=== PATIENT | female | born 2000 | race Caucasian/White ===

== ENCOUNTER 2020-03-26 02:08 | Emergency (ER) | payer BC ==
[~2020-03-26] VITALS: Ht 160 cm; Wt 59.0 kg
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
[2020-03-26] MEDS ORDERED: LACTATED RINGERS 1,000 ML IV ONE (02:20)
[2020-03-26] MEDS ORDERED: DOXYCYCLINE 100 MG (VIBRAMYCIN) TABLET PO STA (02:30)
[2020-03-26] MEDS ORDERED: KETOROLAC 30 MG/ML VIAL IVP ONE (02:30)
[2020-03-26] MEDS ORDERED: NS 100 ML (IVPB) BAG IV ONE (02:30)
[2020-03-26] MEDS ORDERED: ONDANSETRON 4 MG/2 ML (SDV) Z0FRAN IVP ONE (02:30)
[2020-03-26] MEDS ORDERED: cefTRIAXone FOR IV USE 1,000 MG in WATER (STERILE) FOR INJECTION 10 ML IV ONE (02:30)
[2020-03-26] MEDS ORDERED: HOLD METFORMIN - RECEIVED CONTRAST 20 ML VIAL IV SCH (02:30)
[2020-03-26] MEDS ORDERED: IOHEXOL 350 MG/ML 100 ML (OMNIPAQUE 350) VIAL IV ONE (02:30)
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
[2020-03-26] MEDS ORDERED: DOXY100C2 PO (03:23)
[2020-03-26 03:29] LABS: BACTERIA,URINE MODERATE /HPF; BILIRUBIN,URINE NEGATIVE (NEGATIVE); CLARITY,URINE SL CLOUDY; COLOR,URINE DARK YELLOW; GLUCOSE, URINE (UA) NEGATIVE (NEGATIVE); KETONES,URINE NEGATIVE (NEGATIVE); LEUKOCYTE ESTERASE ,URINE TRACE (NEGATIVE); NITRITE,URINE NEGATIVE (NEGATIVE); PH,URINE 5.5 (5-9); PROTEIN,URINE TRACE (NEGATIVE)
[2020-03-26 03:30] LABS: CALCIUM OXALATE CRYSTALS,UR MODERATE /LPF; SQUAMOUS EPITHELIAL CELL,UR >50 /HPF
[2020-03-26 03:31] LABS: BUN/CREATININE RATIO 17; CARBON DIOXIDE 23 MMOL/L (21-32); CHLORIDE 102 MMOL/L (98-107); CREATININE SERUM 0.84 MG/DL (0.60-1.30); GFR ESTIMATED > 60; GLUCOSE 109 MG/DL (70-105); POTASSIUM 3.7 MMOL/L (3.6-5.0); SODIUM 141 MMOL/L (135-145)
[2020-03-26 03:32] LABS: ALANINE AMINOTRANSFERASE 8 U/L (0-55); ALKALINE PHOSPHATASE 67 U/L (40-136); BILIRUBIN,TOTAL 0.5 MG/DL (0.1-1.0); CALCIUM 9.8 MG/DL (8.5-10.1); TOTAL PROTEIN 8.3 GM/DL (6.4-8.2)
[2020-03-26] MEDS ORDERED: ONDA4TAB11 PO (03:35)
[2020-03-26] MEDS ORDERED: L.AC1CAP6 PO (03:52)
[2020-03-26] MEDS ORDERED: METR500T PO (03:52)
[2020-03-26 03:58] LABS: HEMATOCRIT 34 % (35-52); HEMOGLOBIN 10.8 G/DL (11.5-16.0); MEAN CORPUSCULAR HEMOGLOBIN 25 PG (25-34); MEAN CORPUSCULAR VOLUME 79 FL (80-99)
[2020-03-26 03:59] LABS: BASOPHILS # (AUTO) 0.1 10^3/uL (0.0-0.1); BASOPHILS % (AUTO) 0 % (0-10); EOSINOPHILS % (AUTO) 0 % (0-10); LYMPHOCYTES # (AUTO) 1.5 X 10^3 (1.0-4.0); LYMPHOCYTES % (AUTO) 7 % (12-44); MEAN CORPUSCULAR HGB CONC 32 G/DL (32-36); MEAN PLATELET VOLUME 10.2 FL (7.4-10.4); MONOCYTES # (AUTO) 1.4 X 10^3 (0.0-1.0); MONOCYTES % (AUTO) 6 % (0-12); NEUTROPHILS % (AUTO) 87 % (42-75); PLATELET COUNT 398 10^3/uL (130-400); RED CELL DISTRIBUTION WIDTH 13.8 % (10.0-14.5)
[2020-03-26 04:05] VITALS: BP 104/74
[2020-03-26 04:06] LABS: BAND NEUTROPHILS 12 %; BASOPHILS % (MANUAL) 0 %; EOSINOPHILS % (MANUAL) 0 %; HYPOCHROMASIA 1+; LYMPHOCYTES % (MANUAL) 7 %; MONOCYTES % (MANUAL) 4 %; NEUTROPHILS % (MANUAL) 77 %
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
== END 2020-03-26 04:14 | disposition home or self-care (01) ==
LOC: EDUNIT# 02:08 → ER FS 02:10
DX: S06.0X0A Concussion without loss of consciousness, initial encounter (principal); S10.93XA Contusion of unspecified part of neck, initial encounter; S05.8X1A Other injuries of right eye and orbit, initial encounter; S00.83XA Contusion of other part of head, initial encounter; S20.211A Contusion of right front wall of thorax, initial encounter; S80.211A Abrasion, right knee, initial encounter; E04.1 Nontoxic single thyroid nodule; N76.0 Acute vaginitis; D72.828 Other elevated white blood cell count; R40.2142 Coma scale, eyes open, spontaneous, at arrival to emergency department; R40.2252 Coma scale, best verbal response, oriented, at arrival to emergency department; R40.2362 Coma scale, best motor response, obeys commands, at arrival to emergency department; Y04.8XXA Assault by other bodily force, initial encounter
CPT/HCPCS: 36415; 70450; 70486; 71046; 72125; 74177; 80053; 81000; 84703; 85007; 85027; 87088; 87210; 87491; 87591

== ENCOUNTER 2021-03-26 18:55 | Inpatient (IN) | payer BC, MEDICAID ==
[~2021-03-26] VITALS: Ht 157.5 cm; Wt 74.5 kg
[~2021-03-26 18:55] MED LIST: DOXY100C2 PO; L.AC1CAP6 PO; METR500T PO; ONDA4TAB11 PO
[2021-03-26 19:15] VITALS: BP 128/74
[2021-03-26] MEDS ORDERED: LACTATED RINGERS 1,000 ML IV SCH (19:45)
[2021-03-26 19:58] LABS: BASOPHILS % (AUTO) 0 % (0-10); EOSINOPHILS % (AUTO) 0 % (0-10); HEMATOCRIT 33 % (35-52); HEMOGLOBIN 9.9 g/dL (11.5-16.0); LYMPHOCYTES # (AUTO) 2.3 10^3/uL (1.0-4.0); LYMPHOCYTES % (AUTO) 17 % (12-44); MEAN CORPUSCULAR HEMOGLOBIN 23 pg (25-34); MEAN CORPUSCULAR HGB CONC 30 g/dL (32-36); MEAN CORPUSCULAR VOLUME 77 fL (80-99); MEAN PLATELET VOLUME 11.5 fL (9.0-12.2); MONOCYTES # (AUTO) 1.1 10^3/uL (0.0-1.0); MONOCYTES % (AUTO) 8 % (0-12); NEUTROPHILS # (AUTO) 9.5 10^3/uL (1.8-7.8); NEUTROPHILS % (AUTO) 72 % (42-75); PLATELET COUNT 302 10^3/uL (130-400); WHITE BLOOD COUNT 13.2 10^3/uL (4.3-11.0)
[2021-03-26 20:00] VITALS: BP 110/73
[2021-03-26] MEDS: D5 LR IV SOLUTION 1,000 ML IV SCH (20:38)
[2021-03-26 21:00] VITALS: BP 111/64
[2021-03-26] MEDS ORDERED: ZOLPIDEM 5 MG (AMBIEN) TAB PO SCH (21:00)
[2021-03-26] MEDS ORDERED: FERR-84 PO (21:45)
[2021-03-26] MEDS ORDERED: PREN-98 PO (21:45)
[2021-03-26 22:00] VITALS: BP 122/69
[2021-03-26] MEDS: CATHETER FLUSH 10 ML SYR IV SCH (22:00)
[2021-03-26 22:10] LABS: BILIRUBIN,URINE NEGATIVE (NEGATIVE); CLARITY,URINE CLEAR; COLOR,URINE YELLOW; GLUCOSE, URINE (UA) NEGATIVE (NEGATIVE); KETONES,URINE NEGATIVE (NEGATIVE); LEUKOCYTE ESTERASE ,URINE NEGATIVE (NEGATIVE); NITRITE,URINE NEGATIVE (NEGATIVE); PROTEIN,URINE NEGATIVE (NEGATIVE)
[2021-03-27] VITALS (35 sets, daily range): BP systolic 106–149; BP diastolic 55–95
[2021-03-27] MEDS ORDERED: fentaNYL 2 mcg/ml BUPIVA 0.125 100 ML ONE (02:29)
[2021-03-27] MEDS ORDERED: MINERAL OIL CONCENTRATE 99.9% 15 ML UDC ONE (03:01)
[2021-03-27] MEDS ORDERED: OXYTOCIN PRE-MIX DRIP 500 ML IV ONE (03:01)
[2021-03-27] MEDS ORDERED: LIDOCAINE/EPI 2% 1:200,00 (XYLOCAINE) 20 ML VIAL ONE (03:01)
[2021-03-27] MEDS ORDERED: BUPIVACAINE 0.25% 30 ML (SENSORCAINE) VIAL ONE (03:03)
[2021-03-27] MEDS ORDERED: fentaNYL INJ 100 MCG/2 ML AMP ONE (03:03)
[2021-03-27] MEDS: D5 LR IV SOLUTION 1,000 ML IV SCH ×3 (03:13→23:27)
[2021-03-27] MEDS ORDERED: OXYTOCIN PRE-MIX DRIP 500 ML IV SCH ×2 (05:30→08:15)
[2021-03-27] MEDS: CATHETER FLUSH 10 ML SYR IV SCH ×2 (06:00→14:02)
[2021-03-27] MEDS ORDERED: METOCLOPRAMIDE INJ 10 MG/2 ML (REGLAN) ONE (06:33)
[2021-03-27] MEDS ORDERED: FAMOTIDINE 20MG/2ML IV (PEPCID) ONE (06:33)
[2021-03-27] MEDS ORDERED: CITRIC ACID/SOB CIT (BICITRA) 30 ML UDC ONE (06:33)
[2021-03-27] MEDS ORDERED: ceFAZolin 2 GM IV Premixed 50 ML ONE (06:33)
[2021-03-27] MEDS ORDERED: TERBUTALINE INJ 1 MG/ML (BRETHINE) AMP ONE (06:34)
[2021-03-27] MEDS ORDERED: METHYLERGONOVINE 0.2 MG/ML (METHERGINE) AMP ONE (06:56)
--- NOTE | 2021-03-27 07:34 | History & Physical-OB ---
OB - Chief Complaint & HPI Date/Time Date of Admission: Date of Admission: Mar 26, 2021 at 18:55 Chief Complaint/History Expected Date of Delivery: March 22, 2021 Gestational Age in Weeks: 40 Gestational Age in Days: 4 Allergies and Home Medications Allergies Coded Allergies: No Known Drug Allergies (Unverified , 03/26/21) Home Medications Ferrous Sulfate 325 Mg Tablet, 325 MG PO BID, (Reported) Last Action: New Order Vit37/Iron/Folic Acid 1 Each Tab.chew, 1 EACH PO DAILY, (Reported) Last Action: New Order OB - Admission Exam Physical Exam Vitals: Vital Signs 03/27/21 03/27/21 03/27/21 03:33 03:45 04:31 Temp 36.5 Pulse 81 Resp 18 B/P (MAP) 111/61 (78) Pulse Ox 100 O2 Delivery Room Air Labs Laboratory Tests Test 03/26/21 19:10 03/26/21 19:35 Range/Units Urine Color YELLOW Urine Clarity CLEAR Urine pH 6.0 5-9 Urine Specific [place] >=1.030 1.016-1.022 Urine Protein NEGATIVE NEGATIVE Urine Glucose (UA) NEGATIVE NEGATIVE Urine Ketones NEGATIVE NEGATIVE Urine Nitrite NEGATIVE NEGATIVE Urine Bilirubin NEGATIVE NEGATIVE Urine Urobilinogen 0.2 < = 1.0 MG/DL Urine Leukocyte Esterase NEGATIVE NEGATIVE Urine RBC (Auto) NEGATIVE NEGATIVE Urine RBC /HPF Urine WBC /HPF Urine Crystals /LPF Urine Bacteria /HPF Urine Casts /LPF Urine Mucus /LPF Urine Culture Indicated NO White Blood Count 13.2 H 4.3-11.0 10^3/uL Red Blood Count 4.32 3.80-5.11 10^6/uL Hemoglobin 9.9 L 11.5-16.0 g/dL Hematocrit 33 L 35-52 % Mean Corpuscular Volume 77 L 80-99 fL Mean Corpuscular Hemoglobin 23 L 25-34 pg Mean Corpuscular Hemoglobin Concent 30 L 32-36 g/dL Red Cell Distribution Width 23.2 H 10.0-14.5 % Platelet Count 302 130-400 10^3/uL Mean Platelet Volume 11.5 9.0-12.2 fL Immature Granulocyte % (Auto) 2 % Neutrophils (%) (Auto) 72 42-75 % Lymphocytes (%) (Auto) 17 12-44 % Monocytes (%) (Auto) 8 0-12 % Eosinophils (%) (Auto) 0 0-10 % Basophils (%) (Auto) 0 0-10 % Neutrophils # (Auto) 9.5 H 1.8-7.8 10^3/uL Lymphocytes # (Auto) 2.3 1.0-4.0 10^3/uL Monocytes # (Auto) 1.1 H 0.0-1.0 10^3/uL Eosinophils # (Auto) 0.0 0.0-0.3 10^3/uL Basophils # (Auto) 0.0 0.0-0.1 10^3/uL Immature Granulocyte # (Auto) 0.2 H 0.0-0.1 10^3/uL INGE PARKER MD Mar 27, 2021 07:34
--- NOTE | 2021-03-27 07:34 | Labor Progress Note ---
Labor Progress Note Labor Progress Note Date Seen by Provider: Mar 27, 2021 Time Seen by Provider: 06:45 20 yo G1 @ 40.5 wga Vitals - Labs Vital Signs - I&O Vital Signs Date Time Temp Pulse Resp B/P (MAP) Pulse Ox O2 Delivery O2 Flow Rate FiO2 03/27/21 04:31 81 18 111/61 (78) Room Air 03/27/21 04:16 75 18 131/68 (89) Room Air 03/27/21 04:05 102 18 139/95 (110) Room Air 03/27/21 03:45 81 18 123/75 (91) 100 Room Air 03/27/21 03:40 66 18 125/83 (97) 100 Room Air 03/27/21 03:33 36.5 68 18 135/93 (107) 100 Room Air 03/27/21 03:31 67 18 130/83 (99) 100 Room Air 03/27/21 03:28 86 18 149/83 (105) 100 Room Air 03/27/21 03:00 71 18 139/89 (106) Room Air 03/27/21 02:00 75 18 112/74 (87) Room Air 03/27/21 01:00 74 18 130/78 (95) Room Air 03/27/21 00:00 75 18 108/65 (79) Room Air 03/26/21 23:00 36.3 18 Room Air 03/26/21 22:00 67 18 122/69 (86) Room Air 03/26/21 21:00 76 18 111/64 (80) Room Air 03/26/21 20:00 82 18 110/73 (85) Room Air 03/26/21 19:15 36.7 87 18 98 Room Air I & O 03/27/21 07:00 Intake Total 1000 ml Balance 1000 ml Labs Laboratory Tests 03/26/21 19:10: Urine Color YELLOW, Urine Clarity CLEAR, Urine pH 6.0, Urine Specific [place] >=1.030, Urine Protein NEGATIVE, Urine Glucose (UA) NEGATIVE, Urine Ketones NEGATIVE, Urine Nitrite NEGATIVE, Urine Bilirubin NEGATIVE, Urine Urobilinogen 0.2, Urine Leukocyte Esterase NEGATIVE, Urine RBC (Auto) NEGATIVE, Urine RBC , U rine WBC , Urine Crystals , Urine Bacteria , Urine Casts , Urine Mucus , Urine Culture Indicated NO 03/26/21 19:35: White Blood Count 13.2H, Red Blood Count 4.32, Hemoglobin 9.9L, Hematocrit 33L, Mean Corpuscular Volume 77L, Mean Corpuscular Hemoglobin 23L, Mean Corpuscular Hemoglobin Concent 30L, Red Cell Distribution Width 23.2H, Platelet Count 302, Mean Platelet Volume 11.5, Immature Granulocyte % (Auto) 2, Neutrophils (%) (Auto) 72, Lymphocytes (%) (Auto) 17, Monocytes (%) (Auto) 8, Eosinophils (%) (Auto) 0, Basophils (%) (Auto) 0, Neutrophils # (Auto) 9.5H, Lymphocytes # (Auto) 2.3, Monocytes # (Auto) 1.1H, Eosinophils # (Auto) 0.0, Basophils # (Auto) 0.0, Immature Granulocyte # (Auto) 0.2H INGE PARKER MD Mar 27, 2021 07:34
[2021-03-27] MEDS: KETOROLAC 30 MG/ML VIAL IV SCH ×3 (07:45→20:25)
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
--- NOTE | 2021-03-27 07:46 | Progress Note-Post Operative ---
Post-Operative Progess Note Surgeon (s)/Corrugated Fastener Driver (s) Surgeon ALIYAH YUAN DO Corrugated Fastener Driver: NA Pre-Operative Diagnosis failure to pro, non reassuring heart tones/bradycardia, failed opera Post-Operative Diagnosis Macrosomia, persistent malpresentation cephalopelvic Procedure & Operative Findings Date of Procedure 03/27/21 Procedure Performed/Findings emergent section Anesthesia Type general Estimated Blood Loss Estimated blood loss (mL): 750 ml Specimens/Packing Specimens Removed placenta ALIYAH YUAN DO Mar 27, 2021 07:46
[2021-03-27] MEDS ORDERED: TERBUTALINE INJ 1 MG/ML (BRETHINE) AMP SC ONE (08:00)
[2021-03-27] MEDS ORDERED: METOCLOPRAMIDE INJ 10 MG/2 ML (REGLAN) IVP ONE (08:00)
[2021-03-27] MEDS ORDERED: FAMOTIDINE 20MG/2ML IV (PEPCID) IVP ONE (08:00)
--- NOTE | 2021-03-27 08:05 | Cesarean Section Operative ---
Procedure Procedure Note Pre-operative Diagnosis: Mackenzie rios (20 /Para / ,Gestational Age (wks)40 with [] Post-operative Diagnosis: same [] Procedure: [] low transverse section Physician: ALIYAH YUAN Provider Engagement Executive: [] Estimated blood loss: [] mL Disposition: [] Findings: Viable [] , Apgars [], weight [], intact placenta, 3vc, normal appearing uterus, tubes, and ovaries. Indications:Mackenzie rios (20 /Para / ,Gestational Age (wks)40 presenting for []. Procedure Details: The patient was seen in pre-op and the procedure was discussed with the patient in full, including the risks, benefits, and alternatives. All questions were answered. The patient was taken to the operating room and a time out was performed, verifying patient and procedure. After spinal anesthesia was placed by our anesthesia colleagues, the patient was placed in the dorsal supine with leftward tilt for uterine displacement.~ Her abdomen was then prepped and draped in the typical sterile fashion. A Pfannenstiel skin incision was made using a scalpel and carried down through the underlying fascia. The fascia was incised in the midline and tented up using Harpreet clamps. On both the inferior and superior fascia side the rectus muscle was dissected off bluntly and sharply using Melgoza scissors. The peritoneum was identified and entered bluntly in the midline. This was then stretched laterally using manual strength. After entering the abdominal cavity and confirming lack of intraperitoneal adhesions, a large Delon retractor was placed and the lower uterine segment was visualized. A bladder flap was created with the use of Metzenbaum scissors.~ A scalpel was utilized to make a low transverse uterine incision. Amniotomy was performed with an Allis clamp with return of clear fluid. The infant's head was grasped and brought to the level of the incision. Fundal pressure was applied and was delivered without difficulty. Mouth and nares were suctioned with bulb suction. After the umbilical cord was clamped and cut, the was handed off to the pediatric staff. A sample of cord blood was then obtained. The placenta was delivered intact via uterine massage. The uterus was exte riorized and cleared of all clots and debris. The uterine incision was closed using 0 Vicryl in a running locked fashion. A second imbricated layer was placed using 0 Vicryl in a running fashion as well. The uterus was flexed forward and the posterior rectouterine space was inspected and cleared of all clots and debris. Again the hysterotomy site was examined and hemostasis was observed. The bilateral tubes and ovaries appeared normal. The uterus was placed back into the abdominal cavity and abdominal gutters were cleared of all clots and debris. A final check of the uterine incision showed it to be hemostatic. The peritoneum was closed using 3-0 Vicryl in a running fashion. The fascia was closed with 0 Vicryl in a running fashion. The subcutaneous space was hemostatic, and irrigated. The subcutaneous space was closed with 3-0 Vicryl in several single interrupted stitches. The skin was then closed using 4-0 Monocryl in a running subcuticular fashion. The skin edges were reapproximated together and were hemostatic. A pressure dressing was applied. All sponge, lap and needle counts were correct at the end of the procedure per nursing. Vitals - Labs Vital Signs - I&O Vital Signs Date Time Temp Pulse Resp B/P (MAP) Pulse Ox O2 Delivery O2 Flow Rate FiO2 03/27/21 04:31 81 18 111/61 (78) Room Air 03/27/21 04:16 75 18 131/68 (89) Room Air 03/27/21 04:05 102 18 139/95 (110) Room Air 03/27/21 03:45 81 18 123/75 (91) 100 Room Air 03/27/21 03:40 66 18 125/83 (97) 100 Room Air 03/27/21 03:33 36.5 68 18 135/93 (107) 100 Room Air 03/27/21 03:31 67 18 130/83 (99) 100 Room Air 03/27/21 03:28 86 18 149/83 (105) 100 Room Air 03/27/21 03:00 71 18 139/89 (106) Room Air 03/27/21 02:00 75 18 112/74 (87) Room Air 03/27/21 01:00 74 18 130/78 (95) Room Air 03/27/21 00:00 75 18 108/65 (79) Room Air 03/26/21 23:00 36.3 18 Room Air 03/26/21 22:00 67 18 122/69 (86) Room Air 03/26/21 21:00 76 18 111/64 (80) Room Air 03/26/21 20:00 82 18 110/73 (85) Room Air 03/26/21 19:15 36.7 87 18 98 Room Air I & O 03/27/21 07:00 Intake Total 1000 ml Balance 1000 ml Labs Laboratory Tests 03/26/21 19:10: Urine Color YELLOW, Urine Clarity CLEAR, Urine pH 6.0, Urine Specific [place] >=1.030, Urine Protein NEGATIVE, Urine Glucose (UA) NEGATIVE, Urine Ketones NEGATIVE, Urine Nitrite NEGATIVE, Urine Bilirubin NEGATIVE, Urine Urobilinogen 0.2, Urine Leukocyte Esterase NEGATIVE, Urine RBC (Auto) NEGATIVE, Urine RBC , Urine WBC , Urine Crystals , Urine Bacteria , Urine Casts , Urine Mucus , Urine Culture Indicated NO 03/26/21 19:35: White Blood Count 13.2H, Red Blood Count 4.32, Hemoglobin 9.9L, Hematocrit 33L, Mean Corpuscular Volume 77L, Mean Corpuscular Hemoglobin 23L, Mean Corpuscular Hemoglobin Concent 30L, Red Cell Distribution Width 23.2H, Platelet Count 302, Mean Platelet Volume 11.5, Immature Granulocyte % (Auto) 2, Neutrophils (%) (Auto) 72, Lymphocytes (%) (Auto) 17, Monocytes (%) (Auto) 8, Eosinophils (%) (Auto) 0, Basophils (%) (Auto) 0, Neutrophils # (Auto) 9.5H, Lymphocytes # (Auto) 2.3, Monocytes # (Auto) 1.1H, Eosinophils # (Auto) 0.0, Basophils # (Auto) 0.0, Immature Granulocyte # (Auto) 0.2H ALIYAH YUAN DO Mar 27, 2021 08:05
[2021-03-27] MEDS ORDERED: MEASLES,MUMPS,RUBELLA 1 EA INJ SC SCH (08:15)
[2021-03-27] MEDS ORDERED: ONDANSETRON 4 MG/2 ML (SDV) Z0FRAN IVP PRN ×2 (08:15)
[2021-03-27] MEDS ORDERED: TETANUS,DIPTH,PERTUSS P/F (BOOSTRIX) 0.5 ML VIAL IM SCH (08:15)
[2021-03-27] MEDS ORDERED: BISACODYL 10 MG SUPP (DULCOLAX) PR PRN (08:15)
[2021-03-27] MEDS ORDERED: PROMETHAZINE INJ 25 MG/ML (PHENERGAN) AMP IVP ONE (08:15)
[2021-03-27] MEDS ORDERED: morphine INJ 10 MG/ML 1ML (SYR OR VIAL) IVP ONE (08:15)
[2021-03-27] MEDS ORDERED: morphine INJ 4 MG/ML 1 ML (VIAL/SYRINGE) IVP PRN (08:15)
[2021-03-27] MEDS ORDERED: MEPERIDINE (DEMEROL) INJ 50 MG/ML IVP ONE (08:15)
[2021-03-27] MEDS ORDERED: HYDROmorphone 2 MG/ML VIAL (DILAUDID) IV ONE (08:15)
[2021-03-27] MEDS ORDERED: DCS100C PO (09:17)
[2021-03-27] MEDS ORDERED: IBUP-844 PO (09:17)
[2021-03-27] MEDS ORDERED: ACET-93 PO (09:17)
[2021-03-27] MEDS ORDERED: OXC5T PO (09:17)
[2021-03-27] MEDS: AZITHROMYCIN INJECTION 500 MG in NS (IVPB) 250 ML IV SCH (09:52)
[2021-03-27] MEDS: DOCUSATE SODIUM 100 MG (COLACE) CAP PO SCH ×2 (09:53→22:13)
[2021-03-27] MEDS ORDERED: MINERAL OIL CONCENTRATE 99.9% 15 ML UDC TOP PRN (10:00)
[2021-03-27] MEDS: metroNIDAZOLE 500MG/100ML IVPB 100 ML IV SCH ×2 (10:53→23:17)
[2021-03-27] MEDS: ACETAMINOPHEN 500 MG TAB (TYLENOL) PO SCH ×2 (13:51→23:37)
[2021-03-27] MEDS: METOCLOPRAMIDE 10 MG (REGLAN) TAB PO SCH ×3 (13:52→23:36)
[2021-03-27] MEDS: IBUPROFEN 600 MG (MOTRIN) TAB PO SCH (13:58)
[2021-03-27] MEDS ORDERED: CATHETER FLUSH 10 ML SYR IV SCH (14:00)
--- NOTE | 2021-03-27 18:15 | Anesthesia-Regional Post-Op ---
Regional Patient Condition Mental Status: Alert, Oriented x3 Circulation: Same as Pre-Op Headache: Absent Sensation: Full Recovery Motor Block: Absent Post Op Complications Complications None Follow Up Care/Instructions Patient Instructions None needed. Anesthesia/Patient Condition Patient is doing well, no complaints, stable vital signs, no apparent adverse anesthesia problems. No complications reported per nursing. KHANH DELACRUZ CRNA Mar 27, 2021 18:15
[2021-03-27] MEDS: ceFAZolin INJECTION 1,000 MG in WATER (STERILE) FOR INJECTION 10 ML IV SCH (22:14)
[2021-03-28 00:01] VITALS: BP 123/76
[2021-03-28 04:23] VITALS: BP 122/82
[2021-03-28] MEDS: KETOROLAC 30 MG/ML VIAL IV SCH (05:30)
[2021-03-28 05:54] LABS: BASOPHILS % (AUTO) 0 % (0-10); EOSINOPHILS % (AUTO) 0 % (0-10); HEMATOCRIT 24 % (35-52); HEMOGLOBIN 7.1 g/dL (11.5-16.0); LYMPHOCYTES # (AUTO) 2.8 10^3/uL (1.0-4.0); LYMPHOCYTES % (AUTO) 15 % (12-44); MEAN CORPUSCULAR HEMOGLOBIN 23 pg (25-34); MEAN CORPUSCULAR HGB CONC 30 g/dL (32-36); MEAN CORPUSCULAR VOLUME 79 fL (80-99); MEAN PLATELET VOLUME 10.9 fL (9.0-12.2); MONOCYTES # (AUTO) 1.1 10^3/uL (0.0-1.0); MONOCYTES % (AUTO) 6 % (0-12); NEUTROPHILS # (AUTO) 14.3 10^3/uL (1.8-7.8); NEUTROPHILS % (AUTO) 78 % (42-75); PLATELET COUNT 217 10^3/uL (130-400); WHITE BLOOD COUNT 18.4 10^3/uL (4.3-11.0)
[2021-03-28] MEDS: ceFAZolin INJECTION 1,000 MG in WATER (STERILE) FOR INJECTION 10 ML IV SCH (07:14)
[2021-03-28] MEDS: METOCLOPRAMIDE 10 MG (REGLAN) TAB PO SCH (09:30)
[2021-03-28] MEDS: DOCUSATE SODIUM 100 MG (COLACE) CAP PO SCH (09:31)
[2021-03-28] MEDS: ACETAMINOPHEN 500 MG TAB (TYLENOL) PO SCH (09:31)
[2021-03-28] MEDS: AZITHROMYCIN INJECTION 500 MG in NS (IVPB) 250 ML IV SCH (09:32)
[2021-03-28 09:40] VITALS: BP 118/78
--- NOTE | 2021-03-28 10:32 | Postpartum Progress Note ---
Post Op Post-operative Day #[] Subjective: Patient is without complaints. Ambulating, voiding after call removed. Tolerating a regular diet without nausea or vomiting. Normal lochia. Pain is well controlled with oral pain medications. Passing flatus. [] feeding. [] Objective: [] Physical Exam: General - Alert and oriented, no apparent distress Abdomen - Soft, appropriately tender to palpation, non-distended, fundus firm at umbilicus Incision - clean, dry and intact; no erythema or induration, no drainage Extremities - no edema, negative Jade's bilaterally [] Assessment: [] post-operative day # [], status post []. Recovering well, hemodynamically stable Acute blood loss anemia [] Plan: Routine post-operative care. Encourage breast feeding. Encourage ambulation. VTE prophylaxis: SCDs. Ferrous sulfate supplementation. Plan for discharge [] Vitals - Labs Vital Signs - I&O Vital Signs Date Time Temp Pulse Resp B/P (MAP) Pulse Ox O2 Delivery O2 Flow Rate FiO2 03/28/21 04:23 36.8 78 18 122/82 (95) 99 Room Air 03/28/21 00:01 36.3 85 18 123/76 (92) 98 Room Air 03/27/21 20:00 36.2 80 18 116/55 (75) 97 Room Air 03/27/21 16:00 36.4 93 18 123/72 (89) 97 Room Air 03/27/21 12:00 36.4 81 18 118/72 (87) 97 Room Air 03/27/21 11:21 88 18 126/76 (93) 100 Room Air 03/27/21 10:51 93 18 129/68 (88) 100 Room Air I & O 03/28/21 07:00 Intake Total 5350 ml Output Total 2170 ml Balance 3180 ml Labs Laboratory Tests 03/28/21 05:19: White Blood Count 18.4H, Red Blood Count 3.05L, Hemoglobin 7.1#L, Hematocrit 24L , Mean Corpuscular Volume 79L, Mean Corpuscular Hemoglobin 23L, Mean Corpuscular Hemoglobin Concent 30L, Red Cell Distribution Width 24.5H, Platelet Count 217, Mean Platelet Volume 10.9, Immature Granulocyte % (Auto) 1, Neutrophils (%) (Auto) 78H, Lymphocytes (%) (Auto) 15, Monocytes (%) (Auto) 6, Eosinophils (%) (Auto) 0, Basophils (%) (Auto) 0, Neutrophils # (Auto) 14.3H, Lymphocytes # (Auto) 2.8, Monocytes # (Auto) 1.1H, Eosinophils # (Auto) 0.0, Basophils # (Auto) 0.0, Immature Granulocyte # (Auto) 0.2H ALIYAH YUAN DO Mar 28, 2021 10:32
--- NOTE | 2021-03-28 10:34 | Discharge Inst-Women's Service ---
Discharge Inst-Women's Serv Depart Medication/Instructions Final Diagnosis emergency section antepartum iron def anemia with acute blood loss anemia Problems Reviewed?: Yes Consults/Follow Up Additional Follow Up: Yes ([address] tao for incision check and [address] Zapien) Activity Activity: Activity as Tolerated Driving Instructions: No Driving for 1 Week NO SMOKING: NO SMOKING Nothing Inside Vagina: No Douching, No [place], No Tampons Diet Discharge Diet: No Restrictions Symptoms to Report to : Bleeding Excessive, Pain Increased, Constipation(Persistant), Fever Over 101 Degrees F, Vaginal Bleeding Increase, Cramps in Feet or Legs, Vaginal Discharge Foul For Any Problems or Questions: Contact Your Physician Skin/Wound Care Infection Signs and Symptoms: Increased Redness, Foul Odor of Wound, Increased Drainage, Skin Itchy or Has a Rash, Increased Swelling, Temperature Above 101 F Operative Area Clean and Dry: Keep Incision Clean/Dry Stitches/Adan/Dermabond: Dermabond Bathing Instructions: ALIYAH Sommers DO Mar 28, 2021 10:34
[2021-03-28] MEDS ORDERED: IRON SUCROSE 200 MG/10 ML (VENOFER) VIAL IV NR (10:45)
[2021-03-28 12:00] VITALS: BP 112/71
[2021-03-28] MEDS: metroNIDAZOLE 500MG/100ML IVPB 100 ML IV SCH (12:59)
[2021-03-28] MEDS: IBUPROFEN 600 MG (MOTRIN) TAB PO SCH (13:00)
== END 2021-03-28 15:15 | disposition home or self-care (01) | DRG 787 ==
LOC: EEVIPCON 18:55 → LDRP 18:55
PROVIDERS: ADMIT Family Medicine; ATTEND Family Medicine
PROC: 10D00Z1 Extraction of Products of Conception, Low, Open Approach (ICD-10-PCS; principal; 2021-03-27 06:52)
DX: O48.0 Post-term pregnancy (principal); D62 Acute posthemorrhagic anemia; Z3A.40 40 weeks gestation of pregnancy; Z37.0 Single live birth; O90.81 Anemia of the puerperium; O33.9 Maternal care for disproportion, unspecified; O36.63X0 Maternal care for excessive fetal growth, third trimester, not applicable or unspecified; O32.9XX0 Maternal care for malpresentation of fetus, unspecified, not applicable or unspecified; O62.0 Primary inadequate contractions
CPT/HCPCS: 36415; 74018; 81000; 83033; 85025; 86850; 86900; 86901; 94664

== ENCOUNTER → 2022-08-30 | Outpatient (CLI) | payer BC ==
[~2022-08-30] MED LIST changes: +ACET-93 PO; +DOCU-239 PO; -DOXY100C2 PO; +DOXY100C5 PO; +FERR-84 PO; +IBUP-844 PO; +OXC5T PO; +PREN-98 PO
--- NOTE | 2022-08-30 16:31 | Diagnostic Imaging Report ---
INDICATION: Chronic pain. EXAMINATION: Left knee 08/30/2022 FINDINGS: 3 views of the knee. FINDINGS: There is no evidence for an acute fracture or dislocation. The joint spaces are well maintained. There is no significant soft tissue swelling. IMPRESSION: No acute process. Dictated by: Dictated on workstation # [id number]
== END ==
LOC: RAD FS 15:12
PROVIDERS: ATTEND Family Medicine
DX: M25.562 Pain in left knee (principal); G89.29 Other chronic pain
CPT/HCPCS: 73562